=== PATIENT | female | born 1980 | race Caucasian/White ===

== ENCOUNTER 2023-06-11 11:24 | Emergency (ER) | payer BC, SELFPAY ==
[2023-06-11 11:31] VITALS: BP 132/88
--- NOTE | 2023-06-11 12:20 | ED.GENMED ---
History of Present Illness
General
Chief Complaint: Cold/Flu/URI Symptoms
Source: patient
Time Seen by Provider: 06/11/23 12:02
Travel History
Have you had any contact with someone who has COVID-19?: Yes
Comment: ukn
Do you have any symptoms of coronavirus? Fever > 100 degrees, chills, cough, shortness of breath, sore throat, loss of taste or smell, muscle aches, or headache?: Yes
Symptoms:: bodyaches
History of Present Illness
History of Present Illness:
43-year-old female with past medical history of previous cardiac ablation presenting to the emergency department after testing positive for COVID this past Thursday, symptoms starting that day due to persistent sensation of fatigue, cough, body
aches and generally feeling unwell. Multiple other family members at home sick with similar symptoms. Patient believes she should have been starting to feel better by now and came to the emergency department to be further evaluated at the request
of family members. Patient has no other concerns and has been using her inhaler as needed for coughing spasm and shortness of breath. No other concerns at this time
Past History
Past History
ED Past Medical History: Arrthythmia (AVNRT) and Other (PNA, Vertigo, Migraines); Negative Asthma, HTN, Hypercholesterolemia or NIDDM
ED Past Surgical History: Cardiac (Ablation for SVT) and (X2)
Social History
Tobacco: Non-smoker
Alcohol: None
Drug: None
Personal:
Living: with family
Employment: Employed
Family History
Family History: Other (Noncontributory)
Review of Systems
Review of Systems
All Other Systems: ROS reviewed and negative except as documented in HPI and ROS
Phy Exam
Physical Exam
Physical Exam:
GENERAL: Alert , in no apparent distress
EYE: conjunctiva clear
Head: Normocephalic atraumatic
NECK: Supple,
LUNGS: no acute respiratory distress
NEUROLOGICAL: Alert and oriented
SKIN: Warm and dry, skin intact.
MUSCULOSKELETAL: well perfused.
PSYCH: Normal and appropriate interaction.
Scores
Heart Failure Risk
Heart Failure Risk Score: Not Applicable
Heart Score for Chest Pain Patients
STEMI patient?: Not applicable
Withdrawal Assessment of Alcohol
Withdrawal Assessment Completed?: Not applicable
Course
Vital Signs
Initial and Last Documented VS:
Initial Vital Signs
Temp Pulse Resp BP Pulse Ox
98.3 F 106 16 132/88 98
06/11/23 11:31 06/11/23 11:06/11/23 11:06/11/23 11:31 06/11/23 11:31
Last Documented Vital Signs
Temp Pulse Resp BP Pulse Ox
98.3 F 106 16 132/88 98
06/11/23 11:31 06/11/23 11:31 06/11/23 11:31 06/11/23 11:31 06/11/23 11:31
MDM/Problems Addressed
Differential Diagnosis Includes:
COVID, other viral etiology, pneumonia
MDM/Problems Addressed:
43-year-old female presenting the emergency department for evaluation after testing positive for COVID 6 days ago and having continued symptoms. Patient's vital signs are all reassuring and patient is in no acute respiratory distress. Patient was
reassured that at this time she does not require further emergency department care and can outpatient management continue. She is on day 6 of her symptoms so is not a candidate for Paxlovid or other oral antiviral medications. Prescription for new
inhaler sent to patient's pharmacy. She is otherwise stable for discharge home and aware of return precautions.
*Pulse Oximetry
Patient hypoxic: no
*Critical Care Note
Total Time (30-74mins, 75-104mins- exclusive of procedures): Not Applicable
ED Attending Note
-
Portions of this chart may have been created with voice recognition software.� Occasional wrong word or��sound alike� substitutions may have occurred due to the inherent limitations of voice recognition software.
Discharge Plan
Departure
Patient Disposition: Home (Routine Discharge)
Date of Disposition: 06/11/23
Time of Disposition: 12:20
Patient with high blood pressure during this ER visit?: No
Discharge Problem:
COVID-19
Instructions: COVID-19 (DC)
Prescriptions:
New
albuterol sulfate 90 mcg/actuation HFA aerosol inhaler
2 puff inhalation Q6H PRN (Reason: shortness of breath or wheezing) Qty: 6.7 0RF
No Action
ibuprofen 200 MG tablet
600 mg PO BIDPRN PRN (Reason: chest pain)
propranolol 20 MG tablet
20 mg PO QPM
multivitamin with iron [Daily Multiple Vitamins/Iron] 1 EACH tablet
1 ea PO DAILY
hydrocodone-acetaminophen 1 TABLET tablet
1 tab PO Q4HPRN PRN (Reason: pain) Qty: 10 0RF
ondansetron 4 MG tablet,disintegrating
4 mg PO TIDPRN PRN (Reason: nausea/vomiting) Qty: 10 0RF
Stand Alone Forms: Return to Work
Interventions
Interventions:
*Risk Screen - Suicide Last Done: 06/11/23 12:04
*General Assessment Last Done: 06/11/23 12:04
*Neglect/Abuse Screening Last Done: 06/11/23 12:04
*ED COVID-19 Vaccine History Last Done: 06/11/23 11:31
ED- Pulmonary Assessment Last Done: 06/11/23 12:04
== END 2023-06-11 12:41 | disposition home or self-care (01) ==
LOC: EMR 11:24
PROVIDERS: EMERGENCY PHYSICIAN Emergency Medicine; FAMILY PHYSICIAN Physician Assistant
DX: U07.1 COVID-19 (principal); R05.9 Cough, unspecified
CPT/HCPCS: 99282

== ENCOUNTER 2023-09-15 10:15 | Emergency (ER) | payer BC, SELFPAY ==
[2023-09-15 10:17] VITALS: BP 130/82
[2023-09-15 10:45] VITALS: BMI 24.0
[2023-09-15] MEDS: TORADOL 15 MG IV (10:51)
[2023-09-15] MEDS: NSS 500 IV (10:52)
--- NOTE | 2023-09-15 10:55 | ED.GENMED ---
History of Present Illness
General
Chief Complaint: Abdominal Pain
Source: patient and spouse
Exam Limitations: none
Time Seen by Provider: 09/15/23 10:29
Nursing documentation reviewed up to this point in time: agreed with
Travel History
Have you had any contact with someone who has COVID-19?: No
Do you have any symptoms of coronavirus? Fever > 100 degrees, chills, cough, shortness of breath, sore throat, loss of taste or smell, muscle aches, or headache?: No
History of Present Illness
History of Present Illness:
43-year-old female with a past medical history of migraines, anxiety, SVT who presents to the emergency room with her for evaluation of left upper quadrant pain. Patient reports onset of symptoms about 5 days ago and they have been constant
and worsening since then. She reports pain is located in the left upper quadrant near her lower ribs. It is worse with palpation and movement. No relieving factors noted. She denies any clearly identifiable trauma or injury but does say that she
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 She denies any vomiting,
has not had any diarrhea. She said she has chronic constipation but took a laxative thinking that constipation could be contributing�she has had multiple bowel movements over the past few days without improvement in her symptoms. She has not had
any dysuria, hematuria, change in urinary frequency. She denies any coughing or shortness of breath. She denies any other complaints on review of systems. Denies similar symptoms in the past
Past History
Past History
ED Past Medical History: Arrthythmia (AVNRT) and Other (PNA, Vertigo, Migraines); Negative Asthma, HTN, Hypercholesterolemia or NIDDM
ED Past Surgical History: Cardiac (Ablation for SVT) and (X2)
Social History
Tobacco: Non-smoker
Alcohol: None
Drug: None
Personal:
Living: with family
Employment: Employed
Family History
Family History: Other (Noncontributory)
Review of Systems
Review of Systems
All Other Systems: ROS reviewed and negative except as documented in HPI and ROS
Constitutional: Denies fever or chills
EENT: Denies sore throat or runny nose
Respiratory: Denies cough or trouble breathing
Cardiac: Denies chest pain or palpitations
ABD/GI: Reports abdominal pain; Denies nausea, vomiting or diarrhea
: Denies dysuria, frequency or flank pain
Musculoskeletal: Denies neck pain or back pain
Neurological: Denies dizzy or headache
Phy Exam
Physical Exam
Physical Exam:
General: Awake, alert, oriented x3; no acute distress
Head: Normocephalic, atraumatic
Eyes: Conjunctiva normal, sclera anicteric
Throat: Airway intact, handling secretions
Neck: Trachea midline, supple without meningismus
Lungs: Clear to auscultation bilaterally, no wheezing, rales, rhonchi
Heart: Regular rate and rhythm, no murmurs, gallops, or rubs; patient has point tenderness in the left anterior midclavicular line over her 10th rib but no crepitus, no ecchymosis, no rash or bruising
Abd: Soft, non distended, mild tender to palpation left upper quadrant but really focally tender over the rib as above
Neuro: Cranial nerves grossly intact, speech fluid
Skin: no rash or bruising
Extremities: No edema in extremities, warm and well-perfused
Scores
Heart Failure Risk
Heart Failure Risk Score: Not Applicable
Heart Score for Chest Pain Patients
STEMI patient?: Not applicable
Withdrawal Assessment of Alcohol
Withdrawal Assessment Completed?: Not applicable
Course
Orders/Labs/Results
Orders:
Orders
09/15/23 10:44
CT Abd/pelvis W Iv Cont Urgent
Comment:
Reason For Exam: LUQ/lower rib pain, point tenderness
09/15/23 10:45
Ketorolac [Toradol] 15 mg IV NOW STA
Test Result ONCE
09/15/23 10:46
0.9% Sodium Chloride 500 ml [Nss] 500 ml IV BOLUS
09/15/23 10:51
Complete Blood Count/With Diff Urgent
Comprehensive Metabolic Panel Urgent
HCG, Serum Qualitative Screen Urgent
09/15/23 11:19
Urinalysis Reflex To Culture Urgent
Date Specimen was Collected: 09/15/23
Time Specimen was Collected: 10:37
Urine Microscopic Reflex Cult Urgent
09/15/23 13:21
D-Dimer Urgent
Lipase Urgent
Abnormal Lab Results
09/15/23 09/15/23
10:51 11:19
MCHC 32.6 L g/dL
(33.0-37.0)
MPV 11.2 H fL
(7.4-10.4)
Leukocyte Esterase Rfl Trace A
(Negative)
Urine Bacteria (Reflex) Few A
(Negative)
09/15/23 10:51
09/15/23 10:51
Vital Signs
Initial and Last Documented VS:
Initial Vital Signs
Temp Pulse Resp BP Pulse Ox
36.6 C 102 16 130/82 98
09/15/23 10:17 09/15/23 10:17 09/15/23 10:17 09/15/23 10:17 09/15/23 10:17
Last Documented Vital Signs
Temp Pulse Resp BP Pulse Ox
36.6 C 80 20 116/58 100
09/15/23 10:17 09/15/23 12:32 09/15/23 12:32 09/15/23 12:32 09/15/23 12:32
MDM/Problems Addressed
Differential Diagnosis Includes:
Nephrolithiasis, pyelonephritis, lower lobe pneumonia, rib fracture, costochondritis, muscular strain/abdominal wall hematoma, splenic injury, gastritis, PUD
MDM/Problems Addressed:
43-year-old female with history as above presents for evaluation of left upper quadrant pain over the past few days. Tachycardic but otherwise normal vitals. Physical exam as above-- she has point tenderness as described above. Plan to check
basic labs including CBC and CMP, hCG. Check urinalysis. Sent for CT of the abdomen pelvis. Treat pain with Toradol and provide fluids. Monitor closely reassess after the above.
Labs reviewed: CBC unremarkable, CMP no clinically significant abnormalities. Lipase normal. hCG negative. Urinalysis negative for infection. CT of the abdomen and pelvis shows no acute pathology to account for patient's symptoms. Added on
D-dimer given location this was negative. Based on her point tenderness I suspect that this is likely acute costochondritis or abdominal wall/chest wall muscle strain. No indication for admission we will plan to discharge with pain control have
her follow-up with her primary care physician. She feels comfortable this plan. Spoke with return precautions all questions answered.
*Radiology
Radiology exam reviewed: radiology read reviewed
*Pulse Oximetry
Patient hypoxic: no
*Critical Care Note
Total Time (30-74mins, 75-104mins- exclusive of procedures): Not Applicable
Data Reviewed
Source: patient
ED Attending Note
-
Portions of this chart may have been created with voice recognition software.� Occasional wrong word or��sound alike� substitutions may have occurred due to the inherent limitations of voice recognition software.
Discharge Plan
Departure
Patient Disposition: Home (Routine Discharge)
Date of Disposition: 09/15/23
Time of Disposition: 14:15
Patient with high blood pressure during this ER visit?: No
Discharge Problem:
Left sided abdominal pain, Acute costochondritis
Instructions: Costochondritis
Prescriptions:
New
lidocaine [Lidocan III] 5 % adhesive patch,medicated
1 patch topical DAILY Qty: 30 0RF
ibuprofen 400 mg tablet
400 mg PO Q6H PRN (Reason: Pain) Qty: 30 0RF
No Action
ibuprofen 200 MG tablet
600 mg PO BIDPRN PRN (Reason: chest pain)
propranolol 20 MG tablet
20 mg PO QPM
multivitamin with iron [Daily Multiple Vitamins/Iron] 1 EACH tablet
1 ea PO DAILY
hydrocodone-acetaminophen 1 TABLET tablet
1 tab PO Q4HPRN PRN (Reason: pain) Qty: 10 0RF
ondansetron 4 MG tablet,disintegrating
4 mg PO TIDPRN PRN (Reason: nausea/vomiting) Qty: 10 0RF
albuterol sulfate 90 mcg/actuation HFA aerosol inhaler
2 puff inhalation Q6H PRN (Reason: shortness of breath or wheezing) Qty: 6.7 0RF
Referrals:
Levar Bennett DO [Family Provider] - Follow up in 2-3 days
Stand Alone Forms: Return to Work
Activity Restrictions/Additional Instructions:
Thank you for visiting the Emergency Department at [facility].
1. Please schedule a follow up appointment as directed. Call first thing tomorrow morning to make an appointment.
2. If indicated, please take your medications as instructed and indicated on discharge paperwork.
3. If any of your symptoms do not improve, or persist, or become more severe within 6-12 hours, please return to the emergency department for further care.
4. Please return to the emergency department if you develop a headache, neck pain/stiffness, fever greater than 100.4F, chest pain, shortness of breath, persistent nausea, vomiting, slurred speech, difficulty walking, numbness/tingling, weakness,
signs of infection or any other symptoms that are worrisome to you.
Please call [phone] if you have any questions.
Interventions
Interventions:
*Risk Screen - Suicide Last Done: 09/15/23 10:31
*General Assessment Last Done: 09/15/23 10:31
*Neglect/Abuse Screening Last Done: 09/15/23 10:31
*ED COVID-19 Vaccine History Last Done: 09/15/23 10:31
GR-Uhlmov-Girvmbmdhg Assessment Last Done: 09/15/23 10:45
Discharge Date and Time
Print Language: HUNGARIAN
[2023-09-15 11:12] LABS: % Basophils 0.6 % (0-2); % Eosinophils 0.6 % (0-6); % Immature Granulocytes 0.3 % (0-0.5); % Lymphocytes 24.3 % (20.5-51.1); % Monocytes 6.2 % (1.7-9.3); Absolute Lymphocytes 1.6 10^3/uL (1.2-3.4); Absolute Monocytes 0.4 10^3/uL (0.1-0.6); Absolute Neutrophils 4.4 10^3/uL (1.4-6.5); Hematocrit 38.3 % (37.0-47.0); Hemoglobin 12.5 g/dL (12.0-16.0); Mean Corp Hgb Conc. 32.6 g/dL (33.0-37.0); Mean Corpuscular Hgb 28.6 pg (27.0-31.0); Mean Corpuscular Volume 87.6 fL (81.0-99.0); Mean Platelet Volume 11.2 fL (7.4-10.4); Nucleated Red Blood Cells % 0 %; Platelet Count 269 10^3/uL (130-400); Red Blood Cell Count 4.37 10^6/uL (4.20-5.40); Red Cell Dist. Width 14.4 % (11.5-14.5); White Blood Cell Count 6.4 10^3/uL (4.8-10.8)
[2023-09-15 11:19] LABS: HCG, Serum Qualitative Screen Negative
[2023-09-15 11:22] LABS: ALT (SGPT) 13 U/L (0-35); AST (SGOT) 19 U/L (14-36); Albumin 4.2 g/dl (3.5-5.0); Alkaline Phosphatase 55 U/L (38-126); Blood Urea Nitrogen 9 mg/dl (7-17); Calcium 9.1 mg/dl (8.4-10.2); Carbon Dioxide 26 mmol/L (22-30); Chloride 107 mmol/L (98-107); Estimated Creatinine Clearance 98 ml/min; Glucose 91 mg/dl (70-99); Sodium 139 mmol/L (135-145); Total Bilirubin 1.3 mg/dl (0.2-1.3); eGFR > 60.00
[2023-09-15 11:36] LABS: Urine Albumin Negative (Neg - Trace); Urine Bilirubin Negative (Negative); Urine Character Clear (Clear); Urine Color Yellow; Urine Glucose Negative (Negative); Urine Ketone Negative (Negative); Urine Leukocyte Trace (Negative); Urine Nitrite Negative (Negative); Urine Occult Blood Negative (Negative); Urine Urobilinogen Negative (Neg - 1+)
[2023-09-15 12:04] LABS: Urine Bacteria Few (Negative); Urine Red Blood Cell None Seen /HPF (0-2); Urine Squamous Cell 16-20 /LPF (Few); Urine White Cell 0-2 /HPF (0-5)
[2023-09-15 12:32] VITALS: BP 116/58
[2023-09-15 13:41] LABS: Lipase 252 U/L (23-300)
[2023-09-15 13:44] LABS: D-Dimer 0.47 ug/mlFEU (0.00-0.50)
[2023-09-15 14:30] VITALS: BP 114/57
== END 2023-09-15 14:34 | disposition home or self-care (01) ==
LOC: EMR 10:15
PROVIDERS: EMERGENCY PHYSICIAN Emergency Medicine; FAMILY PHYSICIAN Family Medicine
DX: R10.12 Left upper quadrant pain (principal); M94.0 Chondrocostal junction syndrome [Tietze]; F41.9 Anxiety disorder, unspecified; I47.10 Supraventricular tachycardia, unspecified
CPT/HCPCS: 99284; 96374; 96361; 74177; 80053; 81003; 81015; 83690; 84703; 85025; 85379; Q9967

== ENCOUNTER 2024-05-04 06:32 | Emergency (ER) | payer BC, SELFPAY ==
[2024-05-04 06:35] VITALS: BP 138/78
[2024-05-04 08:14] LABS: % Eosinophils 1.3 % (0-6); % Immature Granulocytes 0.2 % (0-0.5); % Lymphocytes 21.7 % (20.5-51.1); % Monocytes 5.6 % (1.7-9.3); % Neutrophils 70.2 % (42.2-75.2); Absolute Basophils 0.1 10^3/uL (0-0.2); Absolute Eosinophils 0.1 10^3/uL (0-0.7); Absolute Lymphocytes 1.4 10^3/uL (1.2-3.4); Absolute Monocytes 0.4 10^3/uL (0.1-0.6); Absolute Neutrophils 4.4 10^3/uL (1.4-6.5); Hematocrit 38.2 % (37.0-47.0); Hemoglobin 12.8 g/dL (12.0-16.0); Mean Corp Hgb Conc. 33.5 g/dL (33.0-37.0); Mean Corpuscular Hgb 29.2 pg (27.0-31.0); Mean Corpuscular Volume 87.2 fL (81.0-99.0); Mean Platelet Volume 10.5 fL (7.4-10.4); Nucleated Red Blood Cells % 0 %; Platelet Count 254 10^3/uL (130-400); Red Blood Cell Count 4.38 10^6/uL (4.20-5.40); Red Cell Dist. Width 13.4 % (11.5-14.5); White Blood Cell Count 6.3 10^3/uL (4.8-10.8)
[2024-05-04 08:29] LABS: HCG, Serum Qualitative Screen Negative
[2024-05-04 08:38] LABS: ALT (SGPT) 16 U/L (0-35); AST (SGOT) 20 U/L (14-36); Albumin 4.2 g/dl (3.5-5.0); Alkaline Phosphatase 49 U/L (38-126); Blood Urea Nitrogen 10 mg/dl (7-17); Calcium 9.5 mg/dl (8.4-10.2); Carbon Dioxide 26 mmol/L (22-30); Chloride 104 mmol/L (98-107); Glucose 94 mg/dl (70-99); Lipase 187 U/L (23-300); Potassium 3.6 mmol/L (3.5-5.1); Sodium 139 mmol/L (135-145); Total Bilirubin 1.3 mg/dl (0.2-1.3); Total Protein 6.9 g/dl (6.3-8.2); eGFR > 60.00
--- NOTE | 2024-05-04 08:42 | ED.GENMED ---
History of Present Illness
General
Chief Complaint: Abdominal Pain
Source: patient
Exam Limitations: none
Time Seen by Provider: 05/04/24 07:42
Nursing documentation reviewed up to this point in time: agreed with
History of Present Illness
History of Present Illness:
44 yo female w h/o 'bowel problems,' IBSC, takes daily laxatives, last BM 2 days ago. 5 days ago woke with left upper abdominal pain which have waxed and waned since, now 10/11, 'comes in waves.' Has been slowly getting worse. No relieving or
aggravating factors. Feels nauseous, vomited once 2 nights ago, none since. Denies fever. Yesterday had a 'weird heaviness in my left arm' for 2 hours, no associated symptoms. Completely resolved.
Has appt with [facility] on 05/19.
Past History
Past History
ED Past Medical History: Arrthythmia (AVNRT, ) and Other (PNA, Vertigo, Migraines, IBS, constipation); Negative Asthma, HTN, Hypercholesterolemia or NIDDM
ED Past Surgical History: Cardiac (Ablation for SVT 08/2015) and (X2)
Social History
Tobacco: Non-smoker
Alcohol: None
Drug: None
Personal:
Living: with family
Employment: Employed
Family History
Family History: Other (Noncontributory)
Review of Systems
Review of Systems
Allergies reviewed?: Yes
All Other Systems: ROS reviewed and negative except as documented in HPI and ROS
Constitutional: Denies fever
Respiratory: Denies trouble breathing
Cardiac: Denies chest pain
ABD/GI: Reports abdominal pain, nausea and constipated; Denies vomiting, diarrhea, bloody stools or black stools
: Denies dysuria, frequency, difficulty voiding or urgency
Musculoskeletal: Reports no symptoms
Skin: Reports no symptoms
Neurological: Reports no symptoms
Phy Exam
Physical Exam
Physical Exam:
GENERAL: No acute distress. A&Ox3.
CONSTITUTIONAL: Afebrile.
EYES: clear, conjunctivae normal
ENMT: moist mucus membranes, Pharynx nl
RESPIRATORY: Regular respirations, nonlabored, lungs clear.
CARDIOVASCULAR: Regular rate and rhythm, no murmurs, no rubs.
GI: Soft, tender LUQ, normal BS
MUSCULOSKELETAL: Moves with ease. Well perfused.
SKIN: Warm, dry, pink
PSYCH: Normal mood and affect. Well kept, interactive and appropriate
NEUROLOGIC: Awake, alert and oriented. No focal neurological deficits
Course
Orders/Labs/Results
Orders:
Orders
05/04/24 07:41
Test Result ONCE
05/04/24 07:53
Complete Blood Count/With Diff Urgent
Comprehensive Metabolic Panel Urgent
HCG, Serum Qualitative Screen Urgent
Lipase Urgent
Comment: ADD
05/04/24 07:58
Add On- LAB Urgent
Tests Added?: lipase
05/04/24 08:08
CT Abd/pel W Iv And Oral Contr Urgent
Comment:
Reason For Exam: left uper abd pain, constipation
Iohexol [Omnipaque] See Protocol PO NOW STA
Ketorolac [Toradol] 15 mg IV NOW STA
Ondansetron Injectable [Zofran] 4 mg IV NOW STA
05/04/24 08:09
0.9% Sodium Chloride 1000 ml [Nss] 1,000 ml IV BOLUS
05/04/24 08:17
Electrocardiogram (*1) Urgent
Reason for Study: Other
Other Reason for Exam: Episode left arm heaviness
EKG- Treatment ONCE
05/04/24 08:48
Troponin I Urgent
Urinalysis Reflex To Culture Urgent
Date Specimen was Collected: 05/04/24
Time Specimen was Collected: 08:20
Urine Microscopic Reflex Cult Urgent
Abnormal Lab Results
05/04/24 05/04/24
07:53 08:48
MPV 10.5 H fL
(7.4-10.4)
Ur Occult Blood Reflex 1+ A
(Negative)
Urine Bacteria (Reflex) Few A
(Negative)
05/04/24 07:53
05/04/24 07:53
Vital Signs
Initial and Last Documented VS:
Initial Vital Signs
Temp Pulse Resp BP Pulse Ox
97.7 F 90 26 138/78 100
05/04/24 06:35 05/04/24 06:35 05/04/24 06:35 05/04/24 06:35 05/04/24 06:35
Last Documented Vital Signs
Temp Pulse Resp BP Pulse Ox
97.7 F 79 16 116/65 96
05/04/24 06:35 05/04/24 11:54 05/04/24 11:54 05/04/24 11:54 05/04/24 11:54
MDM/Problems Addressed
Differential Diagnosis Includes:
constipation, diverticulitis, kidney stone, GERD
MDM/Problems Addressed:
44 yo female w h/o 'bowel problems,' IBSC, takes daily laxatives, last BM 2 days ago. 5 days ago woke with left upper abdominal pain which have waxed and waned since, now 10/11, 'comes in waves.' Has been slowly getting worse. No relieving or
aggravating factors. Feels nauseous, vomited once 2 nights ago, none since. Denies fever. Yesterday had a 'weird heaviness in my left arm' for 2 hours, no associated symptoms. Completely resolved.
Has appt with [facility] on 05/19.
9:00 a.m.
CBC normal
CMP normal
HCG neg
EKG, Troponin WNL
11:[address] abd/pelivs with po and IV contrast radiology report read: IMPRESSION:
1. Punctate left lower pole renal calculi.
2. No CT evidence for an acute inflammatory process in the abdomen or pelvis.
Nothing in w/u here to explain pt pain.
F/U w PCP in 5-7 days if no better
Recommend Omeprazole which she has taken in the past
*EKG
Interpreted by ED Provider?: Yes
EKG Intrepretation Date: 05/04/24
Interpretation: normal
Heart Rate: 69
Rate: normal
Rhythm: sinus
[place]: normal axis
Interval: normal interval
QRS Pattern: normal QRS
Ischemia: no ischemia
*Critical Care Note
Total Time (30-74mins, 75-104mins- exclusive of procedures): Not Applicable
ED Attending Note
-
Portions of this chart may have been created with voice recognition software.� Occasional wrong word or��sound alike� substitutions may have occurred due to the inherent limitations of voice recognition software.
Discharge Plan
Departure
Patient Disposition: Home (Routine Discharge)
Date of Disposition: 05/04/24
Time of Disposition: 11:53
Patient with high blood pressure during this ER visit?: No
Condition: Good
Discharge Problem:
Abdominal pain
Instructions: Abdominal Pain
Prescriptions:
No Action
ibuprofen 200 MG tablet
600 mg PO BIDPRN PRN (Reason: chest pain)
propranolol 20 MG tablet
20 mg PO QPM
multivitamin with iron [Daily Multiple Vitamins/Iron] 1 EACH tablet
1 ea PO DAILY
hydrocodone-acetaminophen 1 TABLET tablet
1 tab PO Q4HPRN PRN (Reason: pain) Qty: 10 0RF
ondansetron 4 MG tablet,disintegrating
4 mg PO TIDPRN PRN (Reason: nausea/vomiting) Qty: 10 0RF
albuterol sulfate 90 mcg/actuation HFA aerosol inhaler
2 puff inhalation Q6H PRN (Reason: shortness of breath or wheezing) Qty: 6.7 0RF
lidocaine [Lidocan III] 5 % adhesive patch,medicated
1 patch topical DAILY Qty: 30 0RF
ibuprofen 400 mg tablet
400 mg PO Q6H PRN (Reason: Pain) Qty: 30 0RF
Referrals:
Levar Bennett, DO [Family Provider] - As needed
Activity Restrictions/Additional Instructions:
As we discussed, nothing worrisome in your workup here today, nothing to explain your pain
Take your omeprazole daily to see if it helps.
See your doctor in 5 to 7 days if you are not better by then
Return here at any time for worsening pain, fever, vomiting more than once in one hour, or feeling sicker in any way.
Interventions
Interventions:
*Risk Screen - Suicide Last Done: 05/04/24 06:35
*Neglect/Abuse Screening Last Done: 05/04/24 06:35
*Nursing Disposition Last Done: 05/04/24 12:47
HM-Wmuyuz-Joovrckjjl Assessment Last Done: 05/04/24 07:57
Discharge Date and Time
Discharge Date/Time: 05/04/24 12:48
Print Language: BENGALI
[2024-05-04] MEDS: TORADOL 15 MG IV (08:47)
[2024-05-04] MEDS: ZOFRAN 4 MG IV (08:47)
[2024-05-04] MEDS: NSS 1000 IV (08:47)
[2024-05-04] MEDS: OMNIPAQUE 50 ML PO (08:48)
[2024-05-04 08:59] LABS: Urine Albumin Negative (Neg - Trace); Urine Bilirubin Negative (Negative); Urine Character Clear (Clear); Urine Color Yellow; Urine Glucose Negative (Negative); Urine Ketone Negative (Negative); Urine Leukocyte Negative (Negative); Urine Nitrite Negative (Negative); Urine Occult Blood 1+ (Negative); Urine Specific Gravity 1.005 (<1.030); Urine Urobilinogen Negative (Neg - 1+); Urine pH 6.5 (5.0-9.0)
[2024-05-04 09:25] LABS: Troponin I < 0.012 ng/ml
[2024-05-04 09:26] LABS: Urine Urothelial Cell 0-2 /LPF (FEW)
[2024-05-04 09:27] LABS: Urine Bacteria Few (Negative); Urine Red Blood Cell 0-2 /HPF (0-2); Urine White Cell 0-2 /HPF (0-5)
[2024-05-04 09:30] VITALS: BP 118/71
[2024-05-04 11:54] VITALS: BP 116/65
== END 2024-05-04 12:48 | disposition home or self-care (01) ==
LOC: EMR 06:32
PROVIDERS: Registered Nurse; EMERGENCY PHYSICIAN Emergency Medicine; FAMILY PHYSICIAN Family Medicine
DX: R10.12 Left upper quadrant pain (principal); R11.2 Nausea with vomiting, unspecified; K58.9 Irritable bowel syndrome, unspecified; N20.0 Calculus of kidney
CPT/HCPCS: 96374; 96375; 96361; 99284; 74177; 80053; 81003; 81015; 83690; 84484; 84703; 85025; 93005; Q9967